=== PATIENT | male | born 1955 | race Two or more races ===

== ENCOUNTER 2025-09-18 08:41 | Inpatient (IN) | payer BC, OTHER ==
[2025-09-18] VITALS (7 sets, daily range): BP systolic 117–137; BP diastolic 59–85; PULSE 60–86; RESP 16–18; TEMP 98.1–98.2; O2SAT 95–96
[~2025-09-18] VITALS: Ht 165.1 cm; Wt 64.8 kg
[~2025-09-18 08:41] MED LIST: FAMO40TA7 PO; LISI20TA56 PO; ROSU20TA56 PO
--- NOTE | 2025-09-18 08:57 | ED.PDOC ---
History of Present Illness HPI Comments 70 year old male with PMHx HTN, HLD, DM presents to the ED with a chief compliant of dizziness onset 1 year. Patient states he has been experiencing intermittent dizziness for the past year, has worsened the past 3 months. Patient states dizziness worsens with looking up, tilting head, turning head side to side, standing. Denies head injury, chest pain, shortness of breath, difficulty walking, nausea, vomiting, diarrhea, fever, chills, recent travel, numbness/tingling. No other symptoms or modifying factors present at this time. Chief Complaint: Dizziness Time Seen by MD: 08:50 Reviewed Notes: Medications, Allergies Allergies: Coded Allergies: NO KNOWN ALLERGIES (Unverified , 09/18/25) Information Source: Patient Mode of Arrival: Ambulatory Severity: Moderate Timing: Months Duration: Intermittent Prehospital treatment: None Past Medical History PAST MEDICAL HISTORY: DM, High Lipids, HTN Surgical History: Denies all surgeries Family History Family History: Reviewed,noncontributory to illness, No family hx of Cancer, No family hx of DM, No family hx of Heart norma, No family hx of HTN, No family hx ofKidney norma, No family hx of Liver norma, No family hx of Lung norma, No family hx of Stroke Social History Smoker: Non-Smoker Alcohol: Denies ETOH Use Drugs: Denies Drug Use Lives In: Home Constitutional: denies: chills, diaphoresis, fatigue, fever, malaise, sweats, weakness, others EENTM: denies: blurred vision, double vision, ear bleeding, ear discharge, ear drainage, ear pain, ear ringing, eye pain, eye redness, hearing loss, mouth pain, mouth swelling, nasal discharge, nose bleeding, nose congestion, nose pain, photophobia, tearing, throat pain, throat swelling, voice changes, others Respiratory: denies: cough, hemoptysis, orthopnea, SOB at rest, shortness of breath, SOB with excertion, stridor, wheezing, others Cardiovascular: denies: chest pain, dizzy spells, diaphoresis, Dyspnea on exertion, edema, irregular heart beat, left arm pain, lightheadedness, palpitations, PND, syncope, others Gastrointestinal: denies: abdomen distended, abdominal pain, blood streaked bowels, constipated, diarrhea, dysphagia, difficulty swallowing, hematemesis, melena, nausea, poor appetite, poor fluid intake, rectal bleeding, rectal pain, vomiting, others Genitourinary: denies: burning, dysuria, flank pain, frequency, hematuria, incontinence, penile discharge, penile sore, pain, testicle pain, testicle swelling, urgency, others Neurological: reports: dizziness; denies: fainting, headache, left sided numbness, left sided weakness, numbness, paresthesia, pre-existing deficit, right sided numbness, right sided weakness, seizure, speech problems, tingling, tremors, weakness, others Musculoskeletal: denies: back pain, gout, joint pain, joint swelling, muscle pain, muscle stiffness, neck pain, others Integumetry: denies: bruises, change in color, change in hair/nails, dryness, laceration, lesions, lumps, rash, wounds, others Allergic/Immunocompromised: denies: Difficulty Healing, Frequent Infections, Hives, Itching, others Hematologic/Lymphatic: denies: anemia, blood clots, easy bleeding, easy bruising, swollen glands, others Endocrine: denies: excessive hunger, excessive sweating, excessive thirst, excessive urination, flushing, intolerance to cold, intolerance to heat, unexplained weight gain, unexplained weight loss, others Psychiatric: denies: anxiety, bipolar disorder, depression, hopeless, panic disorder, schizophrenia, sleepless, suicidal, others All Other Systems: Reviewed and Negative Physical Exam General Appearance: Moderate Distress HEENT: Normal ENT Inspection, Pharynx Normal, TMs Normal Neck: Full Range of Motion, Non-Tender, Normal, Normal Inspection Respiratory: Chest Non-Tender, Lungs Clear, No Accessory Muscle Use, No Respiratory Distress, Normal Breath Sounds Cardiovascular: No Edema, No JVD, No Murmur, No Gallop, Normal Peripheral Pulses, Regular Rate/Rhythm Breast Exam: Deferred Gastrointestinal: No Organomegaly, Non Tender, No Pulsatile Mass, Normal Bowel Sounds, Soft Genitalia: Deferred Pelvic: Deferred Rectal: Deferred Extremities: No calf tenderness, Normal capillary refill, Normal inspection, Normal range of motion, Non-tender, No pedal edema Musculoskeletal : Apperance: Normal Neurologic: Alert, manager administrative services II-XII nml as Tested, Motor Weakness, Normal Affect, Normal Mood, No Sensory Deficits Cerebellar Function: Normal Reflexes: Normal Skin: Dry, Normal Color, Warm Lymphatic: No Adenopathy Was a procedure done? Was a procedure done?: No EKG EKG : Pulse Rate (adult): 62 [place]: Normal Cardiac Rhythm: NSR Block: None Differential Dx Considerations may include: Autonomic dysfunction, electrolyte imbalance, UTI, CVA X-Ray, Labs, Meds, VS Vital Signs Date Time Temp Pulse Resp B/P (MAP) Pulse Ox O2 Delivery O2 Flow Rate FiO2 09/18/25 08:45 96.3 64 17 144/65 98 96.3 The patient is having a CAT scan of the head as well as lab work done. The patient will be admitted The patient will be signed out to Dr. Gamez. Images Reviewed?: Images reviewed and evaluated by me Time of 1ST Reevaluation: 09:20 Reevaluation 1ST: Unchanged Patient Education/Counseling: Diagnosis, Treatment, Prognosis Family Education/Counseling: No Family Present SEPSIS Sepsis Screen Date sepsis recognized/suspect: Sep 18, 2025 Time Sepsis recognized/suspect: 844 Recent Procedure: No On Antibiotic Therapy: No Respiratory Rate >20: No Heart Rate >90: No Temp<36 C (96.8 F) or >38.3 C: No SBP <90 or MAP <65 mmHG: No New Acute Mental Status Change: No Is the patient on CPAP, BIPAP,: No Physician Orders Complete Blood Count (09/18/25 08:55) Urinalysis (09/18/25 08:55) Basic Metabolic Panel (09/18/25 08:55) Heplock Iv (09/18/25 08:55) Refrigerator Repair Technician (09/18/25 08:55) Blood Pressure (09/18/25 08:55) Pulse Oximetry (09/18/25 08:55) Head Without Contrast (09/18/25 08:55) Vital Signs Date Time Temp Pulse Resp B/P (MAP) Pulse Ox O2 Delivery O2 Flow Rate FiO2 09/18/25 08:45 96.3 64 17 144/65 98 96.3 Departure 1 Departure Time of Disposition: 09:03 Impression: Primary Impression: Autonomic dysfunction Disposition: ADMITTED INPATIENT Admit to: [facility] Condition: Fair Critical Care Note Critical Care Time?: No Stability Stability form required: No I personally scribed for CHAY WHITE MD ([email or web address]) on 11/24/25 at 08:57. Electronically submitted by Sherlyn Del Castillo ([email or web address]). CHAY WHITE MD Sep 18, 2025 08:57
--- NOTE | 2025-09-18 09:01 | ECG ---
[facility] Test Date: 2025-09-18 Test Time: 08:57:49 Pat Name: ANGEL MITCHELL Department: ED Room: 0235 Gender: M Machinist: MASSIMO : [id number] Requested By: CHAY WHITE Order Number: [id number] Reading MD: Vadim Burns Measurements Intervals [place]yer Rate: 62 P: 25 OK: 103 QRS: 41 QRSD: 85 T: 41 QT: 423 QTc: 430 Interpretive Statements Sinus rhythm Short OK interval Electronically Signed On 09-20-2025 17:45:34 PST by Vadim Burns Please click the below link to view image of tracing.
[2025-09-18 09:17] LABS: Hematocrit 40.1 % (41.0-53.0); Hemoglobin 13.6 g/dL (13.5-17.5); Mean Corpuscular Hemoglobin 29.4 pg (28.0-32.0); Mean Corpuscular Volume 86.7 fL (80.0-100.0); Nucleated Red Blood Cells % 0.0 %
[2025-09-18 09:25] LABS: Chloride 102 mmol/L (98-107); Potassium 4.6 mmol/L (3.5-5.1); Sodium 143 mmol/L (136-145)
[2025-09-18 09:26] LABS: Anion Gap 8 (5-15); Calcium 10.0 mg/dL (8.7-10.4)
[2025-09-18 09:27] LABS: Carbon Dioxide 33 mmol/L (20-31)
[2025-09-18 09:31] LABS: BUN/Creatinine Ratio 14.7 (10.0-20.0); Blood Urea Nitrogen 14 mg/dL (9-23)
[2025-09-18 09:40] LABS: Glucose 131 mg/dL (74-106)
--- NOTE | 2025-09-18 10:23 | DVH ---
CLINICAL HISTORY: Dizziness TECHNIQUE: Helical scanning was performed of the head from the skull base to the vertex. Multiplanar reconstructions were performed. This exam was performed according to our departmental dose optimization program. Up-to-date CT equipment and radiation dose reduction techniques are utilized as appropriate. CTDI 54 DLP 966 COMPARISON: None FINDINGS: There is no evidence for acute intracranial hemorrhage, acute ischemic changes, mass, mass effect, or extra-axial fluid collection. There is no hydrocephalus or midline shift. There is no effacement of the cerebral sulci and basal subarachnoid cisterns. The penn-white matter differentiation is well maintained. There is mild brain volume loss and chronic small vessel ischemic change. The imaged paranasal sinuses are clear. IMPRESSION: NO ACUTE INTRACRANIAL ABNORMALITY SEEN.
[2025-09-18] MEDS ORDERED: HYDROcodone-ACET 7.5/325MG TAB PO PRN (10:45)
[2025-09-18] MEDS ORDERED: DEXTROSE (50%) 50ML SYRG IV PRN (10:45)
[2025-09-18] MEDS: FAMOTIDINE 20 MG TAB PO ONE (10:59)
[2025-09-18] MEDS: LISINOPRIL 20 MG TAB PO ONE (11:00)
[2025-09-18] MEDS: ENOXAPARIN SOD 40 MG/0.4 ML SYRINGE SC ONE (11:00)
--- NOTE | 2025-09-18 11:07 | DVHHPRES ---
History of Present Illness Resident Creating Document: KENYA ELIZONDO RESDIENT History of Present Illness This is a 70-year-old gentleman with past medical history of diabetes, hypertension, dyslipidemia, spinal herniated disc and hemorrhoids came to the hospital due to dizziness and syncope like episodes. Per patient, he had a mechanical fall 2 years back, and since that time he has neck and lower back pain which has progressively worsened. He also reports of dizziness, which gets worsened with changing position. He also reports of blurry vision, ringing ears, decreased hearing, constipation, severe rectal pain during passing stool, PMHx: diabetes, hypertension, dyslipidemia, spinal herniated disc and hemorrhoids PSHx: Underwent hemorrhoid surgery six-month marianela Family history: Father had heart attack Social history: Denies smoking, alcohol or any other drug use. Lives with the family at home Home medication: Lisinopril 20 mg daily, famotidine 40 mg daily, docusate, rosuvastatin 20 mg daily, glipizide 10 mg daily, metformin 1 g b.i.d., meloxicam, Allergic history: No known allergy Patient seen and examined at the bedside. Patient is still complaining of dizziness and severe lower back and neck pain. Review of Systems Review of Systems General: patient denies fever, fatigue, weaknes, sweating, reports 80 lb intentional weight loss within last year HEENT: Reports neck pain, blurry vision, ringing and decreased hearing Cardiovascular: Denies chest pain, palpitations, dyspnea on exertion, orthopnea, or claudication. Respiratory: No cough, and wheezing. Gastrointestinal: Reports constipation, pain during bowel movement Genitourinary: No dysuria, hematuria, discharge, frequency, urgency, nocturia, incontinence, and urinary retention. Endocrine: No heat or cold intolerance, polydipsia, polyuria, and polyphagia. Neurological: No dizziness, extremity weakness and numbness, tremors, gait disturbance, seizures, and memory impairment. Psychiatric: Denies depression, anxiety,or insomnia. Musculoskeletal: Reports severe lower back and neck pain Skin: No rashes, itching, skin lesion, changes in hair, nail, skin texture and breast. Hematologic/Lymphatic: Denies easy bruising, bleeding tendencies, or lymph node enlargement. Allergies: Coded Allergies: NO KNOWN ALLERGIES (Unverified , 09/18/25) Medications Current Medications Medications Dose Ordered Sig/Binta Route Start Time Stop Time Status Last Admin Dose Admin Acetaminophen 650 mg Q6HP PRN PO 09/18/25 10:45 Enoxaparin Sodium 40 mg DAILY SC 09/19/25 10:00 Acetaminophen/ Hydrocodone Bitart 1 tab Q6HP PRN PO 09/18/25 10:45 Diagnostic Test (Pha) 1 strip ACHS 09/18/25 11:30 Insulin Human Regular ACHS SC 09/18/25 11:30 Dextrose 50 ml UD PRN IV 09/18/25 10:45 Lisinopril 20 mg DAILY PO 09/19/25 10:00 Atorvastatin Calcium 40 mg HS PO 09/18/25 22:00 Famotidine 40 mg DAILY PO 09/19/25 10:00 Exam Vital Signs Vital Signs Date Time Temp Pulse Resp B/P (MAP) Pulse Ox O2 Delivery O2 Flow Rate FiO2 09/18/25 11:00 137/63 09/18/25 10:16 61 58 66 09/18/25 10:14 97.8 15 98 97.8 09/18/25 09:50 Room Air* 0 21 Exam General Appearance: Alert, Oriented X3, Cooperative, No acute distress HEENT: Atraumatic, PERRLA, EOMI, Mucous membrane moist/pink Respiratory: Clear to auscultation, Normal air movement Cardiovascular: Regular rate, Normal S1, Normal S2, No murmurs, no chest wall tenderness Abdominal: Normal bowel sounds, Soft, No tenderness, No hepatospenomegaly, No masses Extremities: No clubbing, No cyanosis, No edema, Normal pulses, No tenderness/swelling Skin: No rashes, No breakdown, No significant lesion Neuro: Neck and lower back tenderness, on midline Psych/Mental Status: Mental status NL, Mood NL Digital rectal exam performed, found to skin tags, but due to high sphincters from, could not advance the finger Labs/Xrays Labs Test 09/18/25 09:02 Range/Units White Blood Count 7.7 4.4-10.8 10^3/uL Red Blood Count 4.63 4.5-5.90 10^6/uL Hemoglobin 13.6 13.5-17.5 g/dL Hematocrit 40.1 L 41.0-53.0 % Mean Corpuscular Volume 86.7 80.0-100.0 fL Mean Corpuscular Hemoglobin 29.4 28.0-32.0 pg Mean Corpuscular Hemoglobin Concent 34.0 32.0-36.0 g/dL Red Cell Distribution Width 12.9 11.8-14.3 % Platelet Count 140 140-450 10^3/uL Mean Platelet Volume 10.3 6.9-10.8 fL Neutrophils (%) (Auto) 60.0 37.0-80.0 % Lymphocytes (%) (Auto) 31.4 10.0-50.0 % Monocytes (%) (Auto) 6.7 0.0-12.0 % Eosinophils (%) (Auto) 1.2 0.0-7.0 % Basophils (%) (Auto) 0.7 0.0-2.0 % Neutrophils # (Auto) 4.6 1.6-8.6 10 ^3/uL Lymphocytes # (Auto) 2.4 0.4-5.4 10 ^3/uL Monocytes # (Auto) 0.5 0-1.3 10 ^3/uL Eosinophils # (Auto) 0.1 0-0.8 10 ^3/uL Basophils # (Auto) 0.1 0-0.2 10 ^3/uL Nucleated Red Blood Cells 0.0 % Sodium Level 143 136-145 mmol/L Potassium Level 4.6 3.5-5.1 mmol/L Chloride Level 102 98-107 mmol/L Carbon Dioxide Level 33 H 20-31 mmol/L Anion Gap 8 5-15 Blood Urea Nitrogen 14 9-23 mg/dL Creatinine 0.95 0.700-1.30 mg/dL Glomerular Filtration Rate Calc 87 >90 mL/min BUN/Creatinine Ratio 14.7 10.0-20.0 Serum Glucose 131 H 74-106 mg/dL Calcium Level 10.0 8.7-10.4 mg/dL SEPSIS Sepsis Screen Date sepsis recognized/suspect: Sep 18, 2025 Time Sepsis recognized/suspect: 914 Recent Procedure: No On Antibiotic Therapy: No Respiratory Rate >20: No Heart Rate >90: No Temp<36 C (96.8 F) or >38.3 C: No SBP <90 or MAP <65 mmHG: No New Acute Mental Status Change: No Is the patient on CPAP, BIPAP,: No Physician Orders Urinalysis (09/18/25 08:55) Heplock Iv (09/18/25 08:55) Polymerization Supervisor (09/18/25 08:55) Blood Pressure (09/18/25 08:55) Pulse Oximetry (09/18/25 08:55) Head Without Contrast (09/18/25 08:55) Code Status (09/18/25 10:24) Vital Signs .PER UNIT PROTOCOL (09/18/25 10:24) Review Orders With Adm.Md (09/18/25 10:24) Notify Md Of Changes From Base (09/18/25 10:24) Advance Directive (09/18/25 10:24) Patient Condition (09/18/25 10:24) Allergies (09/18/25 10:24) Stat Ekg For Chest Pain (09/18/25 10:24) Notify Md Of Changes From Base (09/18/25 10:24) Joiner For 24 Hours (09/18/25 10:24) Admit (09/18/25 10:30) Echo 2d Mode Cardiac Dop (09/18/25 10:31) Carotid Duplx W Color Dop (09/18/25 10:31) Cervical Wo Contrast (09/18/25 10:31) Thyroid Stimulating Hormone (09/18/25 10:31) Vitamin D, 25-Hydroxy (09/18/25 10:31) Vitamin B12 (09/18/25 10:31) Magnesium (09/18/25 10:31) Hepatic Panel (09/18/25 10:31) Hemoglobin A1c (09/18/25 10:31) [facility]Diabetes (09/18/25 Lunch) Acetaminophen Tablet (Tylenol Tablet) (09/18/25 10:45) Enoxaparin Sodium (Lovenox) (09/19/25 10:00) Hydrocodone-Acet 7.5/325mg Tab ([place] 7. (09/18/25 10:45) Glucose Blood (Accu-Chek Comfort Curve T (09/18/25 11:30) Insulin R (Human) (Insulin R) (09/18/25 11:30) Dextrose 50% Syringe (09/18/25 10:45) Lisinopril Tablet (Zestril Tablet) (09/19/25 10:00) Atorvastatin (Lipitor) (09/18/25 22:00) Famotidine Tablet (Pepcid Tablet) (09/19/25 10:00) Lipid Panel (09/18/25 10:48) Vital Signs Date Time Temp Pulse Resp B/P (MAP) Pulse Ox O2 Delivery O2 Flow Rate FiO2 09/18/25 11:00 137/63 09/18/25 10:16 61 128/53 58 116/47 66 127/54 09/18/25 10:14 97.8 61 15 134/56 (82) 98 97.8 09/18/25 09:50 60 16 96 Room Air* 0 21 09/18/25 09:05 65 14 141/61 (87) 99 09/18/25 09:04 62 09/18/25 08:57 62 09/18/25 08:45 96.3 64 17 144/65 98 96.3 Laboratory Tests Test 09/18/25 09:02 White Blood Count 7.7 10^3/uL (4.4-10.8) Medications Medications Dose Ordered Sig/Binta Route Start Time Stop Time Status Last Admin Dose Admin Enoxaparin Sodium 40 mg ONCE ONCE SC 09/18/25 10:45 09/18/25 10:46 DC 09/18/25 11:00 40 MG Famotidine 40 mg ONCE ONCE PO 09/18/25 10:45 09/18/25 10:51 DC 09/18/25 10:59 40 MG Lisinopril 20 mg ONCE ONCE PO 09/18/25 10:45 09/18/25 10:51 DC 09/18/25 11:00 20 MG Assessment/Plan Assessment/Plan Vertigo, likely due to severe cervical spine stenosis/BPPV Presyncope, due to above Severe cervical spine stenosis BPPV Painful defecation, likely due to anal fissure Anesthesia Severe constipation Constipation, due to above BPH Diabetes Hypertension Dyslipidemia * Orthostatic hypotension check, no significant changes * Consult Doppler, and Head CT scan shows no significant intracranial abnormalities * Cervical spine MRI shows, multilevel degenerative changes most pronounced at C5-6 where there is severe spinal canal narrowing with cord indentation and moderate to severe bilateral foraminal stenosis * Lumbar spine MRI shows, multilevel degenerative changes of the lumbar spine as described above with [id number] foraminal stenosis at multiple levels. No significant spinal canal stenosis * Pelvic ultrasound shows, moderate large prostate Plan/recommendation: * Consider surgery for severe constipation and anal fissure, recommended medical management * Consulted spine surgery for severe cervical spine stenosis * Started Flomax and finasteride * MiraLax and Colace for constipation * Continue home meds, lisinopril and atorvastatin * Pain management DIET: Diabetic diet DVT PROPHYLAXIS: Lovenox GI PROPHYLAXIS:: Protonix BOWEL REGIMEN: Colace and MiraLax CODE STATUS: Goal of care discussed for more than 18 minutes, full code DISPOSITION: Telemetry Patient's status and plan discussed with the patient. Case discussed with Dr. Lamb. Plan discussed with: Patient, Son, Other (RN) My Orders Orders - KENYA ELIZONDO RESDIJHONATHAN Procedure Category Date Status Time Code Status CODE 09/18/25 Transmitted 10:24 Vital Signs [facility] 09/18/25 In Process 10:24 Review Orders With [facility] 09/18/25 In Process Adm.Md 10:24 Notify Md Of Changes [facility] 09/18/25 In Process From Base 10:24 Advance Directive [facility] 09/18/25 In Process 10:24 Patient Condition ORDERS 09/18/25 Transmitted 10:24 Allergies GHADA 09/18/25 In Process 10:24 Stat Ekg For Chest [facility] 09/18/25 In Process Pain 10:24 Notify Md Of Changes [facility] 09/18/25 In Process From Base 10:24 Joiner For [facility] 09/18/25 In Process 24 Hours 10:24 Admit ADMIT 09/18/25 Transmitted 10:30 Echo 2d Mode Cardiac US 09/18/25 Logged DOP 10:31 Carotid Duplx W Color US 09/18/25 Taken DOP 10:31 Cervical Wo Contrast MRI 09/18/25 Logged 10:31 Thyroid Stimulating LAB 09/18/25 In Process Hormone 10:31 Vitamin D, 25-Hydroxy LAB 09/18/25 Logged 10:31 Vitamin B12 LAB 09/18/25 Logged 10:31 Magnesium LAB 09/18/25 In Process 10:31 Hepatic Panel LAB 09/18/25 Logged 10:31 Hemoglobin A1c LAB 09/18/25 In Process 10:31 Consistent DIET 09/18/25 Transmitted Carb(Ccho)Diabetes Lunch Acetaminophen Tablet PHA 09/18/25 In Process (Tylenol Tablet) 10:45 Enoxaparin Sodium PHA 09/19/25 In Process (Lovenox) 10:00 Hydrocodone-Acet PHA 09/18/25 In Process 7.5/325mg Tab ([place] 10:45 Glucose Blood PHA 09/18/25 In Process (Accu-Chek Comfort 11:30 Insulin R (Human) PHA 09/18/25 In Process (Insulin R) 11:30 Dextrose 50% Syringe PHA 09/18/25 In Process 10:45 Lisinopril Tablet PHA 09/19/25 In Process (Zestril Tablet) 10:00 Atorvastatin (Lipitor) PHA 09/18/25 In Process 22:00 Famotidine Tablet PHA 09/19/25 In Process (Pepcid Tablet) 10:00 Lipid Panel LAB 09/18/25 Logged 10:48 Date of Service: Sep 18, 2025 Billing Provider: MICHELLE LAMB MD Common Visit Codes: 39604-[id number] INP/OBS CARE (HIGH) Secondary Visit Codes: 45104-[id number] CARE PLAN 30 MINUTES KENYA ELIZONDO RESDIENT Sep 18, 2025 11:07 MICHELLE LAMB MD Sep 18, 2025 21:08
--- NOTE | 2025-09-18 11:25 | DVH ---
Carotid Duplex Date: 09/18/2025 10:55 AM Clinical History: Pre-syncope Comparison: None Technique: Duplex Doppler evaluation of the extracranial carotid and vertebral arteries including color Doppler and spectral/pulsed waveform analysis was performed. Findings: RIGHT SIDE: The peak systolic velocities are 92 cm/s in the distal CCA and 177 cm/s in the proximal ICA.The ICA/CCA ratio is less than 2. The external carotid artery is patent with peak systolic velocity of 117 cm/s proximally. There is appropriate antegrade flow in the right vertebral artery. LEFT SIDE: The peak systolic velocities are 85 cm/s in the distal CCA and 0 9 cm/s in the proximal ICA.. The ICA/CCA ratio is less than 2. The external carotid artery is patent with peak systolic velocity of 126 cm/s proximally. There is appropriate antegrade flow in the left vertebral artery. IMPRESSION: 1. No hemodynamically significant stenosis noted in the right carotid system. 2. No hemodynamically significant stenosis noted in the left carotid system. 3. Reference: Radiology 2003; 229:340-346
[2025-09-18] MEDS: InsuLIN REG 1unit/0.01ml Soln (100units/ml) SC SCH (11:30)
[2025-09-18 11:38] LABS: Cholesterol 139 mg/dL (< 200); HDL Cholesterol 47 mg/dL (40-59); Triglycerides 183 mg/dL (< 150)
[2025-09-18 11:39] LABS: Alanine Aminotransferase 11.0 U/L (7-40); Albumin 4.5 g/dL (3.2-4.8); Alkaline Phosphatase 60.0 U/L (46-116); Bilirubin, Direct 0.1 mg/dL (<0.3); Bilirubin, Total 0.5 mg/dL (0.2-1.0); Total Protein 7.0 g/dL (5.7-8.2)
[2025-09-18 11:45] LABS: Urine Protein, UAD Negative (Negative)
[2025-09-18] MEDS: ACCU-CHEK COMFORT CURVE STRIP VI SCH (11:58)
[2025-09-18] MEDS: MORPHINE SULFATE INJ 2 MG/ml SYRG IV PRN (14:02)
--- NOTE | 2025-09-18 14:11 | DVH ---
US PELVIC on CLINICAL INDICATION: Prostate size COMPARISON: None TECHNIQUE: Multiple sonographic images of the prostate gland were obtained transrectally. FINDINGS: Prostate measures 5 x 5 x 6 cm. Volume measures 63 cc. Prostate appears heterogeneous with echogenic avascular foci measuring up to 2 cm. IMPRESSION: Prostate measures 5 x 5 x 6 cm. Volume measures 63 cc. Prostate appears heterogeneous with echogenic avascular foci measuring up to 2 cm. Correlate with PSA.
[2025-09-18] MEDS: LIDOCAINE HCL 5 % TOP OINT 35 GM TOP ONE (14:19)
[2025-09-18] MEDS: HYDROCORTISONE ACET 25 MG RECTAL SUPP PR ONE (14:38)
--- NOTE | 2025-09-18 16:04 | DVH ---
EXAM: MRI CERVICAL WO CONTRAST CLINICAL HISTORY: Neck pain, fall injury COMPARISON: None Technique: MRI of the cervical spine was performed without contrast. Findings: Vertebral body height is preserved. Vertebral body alignment is within normal limits. Vertebral marrow signal is essentially normal. No spinal cord edema. C2-3: Disc bulge with uncovertebral hypertrophy. No significant spinal canal or foraminal stenosis. C3-4: Disc bulge with uncovertebral hypertrophy. No significant spinal canal or foraminal stenosis. C4-5: Disc bulge with uncovertebral hypertrophy. Mild bilateral foraminal stenosis and moderate spinal canal narrowing. C5-6: Disc bulge with uncovertebral hypertrophy. Moderate to severe bilateral foraminal stenosis. Severe spinal canal narrowing with cord indentation. C6-7: Disc bulge with uncovertebral hypertrophy. Moderate to severe bilateral foraminal stenosis. Mild spinal canal narrowing. C7-T1: No significant spinal canal or foraminal stenosis. The paraspinal tissues are unremarkable. IMPRESSION: Multilevel degenerative changes most pronounced at C5-6 where there is severe spinal canal narrowing with cord indentation and moderate to severe bilateral foraminal stenosis. No cord edema. No acute fracture.
--- NOTE | 2025-09-18 16:27 | DVH ---
EXAM: MRI LUMBAR SPINE WO CONTRAST CLINICAL HISTORY: Back pain COMPARISON: None Technique: MRI of the lumbar spine was performed without contrast. Findings: Vertebral body height is maintained. Vertebral alignment is anatomic. Vertebral marrow signal intensity is unremarkable. The conus medullaris is normal in position and signal intensity. L1-L2: No significant spinal canal or foraminal stenosis. L2-L3: No significant spinal canal or foraminal stenosis. L3-L4: Disc bulge with facet arthropathy and ligamentum flavum thickening. No significant spinal canal or foraminal stenosis. L4-L5: Disc bulge with facet arthropathy. Mild right foraminal stenosis. No significant spinal canal narrowing. L5-S1: Disc bulge and facet arthropathy. Moderate right and mild left foraminal stenosis. No significant spinal canal narrowing. No mass is identified within the lumbar spinal canal or paravertebral soft tissues. IMPRESSION: Multilevel degenerative changes of the lumbar spine as described above with [id number] foraminal stenosis at multiple levels. No significant spinal canal stenosis.
[2025-09-18] MEDS: FINASTERIDE 5 MG TAB PO ONE (17:48)
[2025-09-18] MEDS: MECLIZINE HCL 25 MG TAB PO ONE (17:51)
--- NOTE | 2025-09-18 18:15 | DVHINCON2 ---
Consultation - Surgical Date Seen: Sep 19, 2025 Referring Physician Referring Physician Attending Doctor: Aurea Khalil Resident Creating Document: AUREA KHALIL Reason for Consultation Severe neck and low back pain History of Present Illness History of Present Illness History of Present Illness This is a 70-year-old gentleman with past medical history of diabetes, hypertension, dyslipidemia, spinal herniated disc and hemorrhoids came to the hospital due to dizziness since six-month. Per patient, he had a mechanical fall 2 years back, and since that time he has neck and lower back pain which has progressively worsened. He also reports of dizziness, which gets worsened with changing position, and looking around. He also reports of blurry vision, ringing ears, decreased hearing, constipation, rectal pain during passing stool, Past Medical/Surgical History Past Medical/Surgical History PMHx: diabetes, hypertension, dyslipidemia, spinal herniated disc and hemorrhoids PSHx: Underwent hemorrhoid surgery six-month marianela Family and Social History Family and Social History Family history: Father had heart attack Social history: Denies smoking, alcohol or any other drug use. Lives with the family at home Home medication: Lisinopril 20 mg daily, famotidine 40 mg daily, docusate, rosuvastatin 20 mg daily, glipizide 10 mg daily, metformin 1 g b.i.d., meloxicam, Allergic history: No known allergy Allergies and medications Allergies: Coded Allergies: NO KNOWN ALLERGIES (Unverified , 09/18/25) Home Meds Active Scripts Baclofen (Baclofen) 20 Mg Tab, 10 TAB PO TID, #90 TAB Prov:AUREA KHALIL RESDIENT 09/20/25 Polyethylene Glycol 3350 (Miralax) 17 Gm Pow, 17 GM PO DAILY PRN for 30 Days, #60 POW Prov:MIKHAILRUSSELLDANYA RESDIENT 09/20/25 Docusate Sodium (Colace) 100 Mg Cap, 100 MG PO TID for 30 Days, #60 CAP Prov:MIKHAILRUSSELLDANYA RESDIENT 09/20/25 Lidocaine (LIDODERM 5% TOPICAL PATCH) 1 Patch Ph, 1 PATCH TOP PRN for 30 Days, #60 PATCH Prov:AUREA KHALIL RESDIENT 09/20/25 Finasteride (Finasteride) 5 Mg Tab, 5 MG PO DAILY for 30 Days, #30 TAB 2 Refills Prov:AUREA KHALIL RESDIENT 09/20/25 Tamsulosin Hcl (Flomax) 0.4 Mg Cap, 0.4 MG PO DAILY for 30 Days, #60 CAP Prov:AUREA KHALIL RESDIENT 09/20/25 Empagliflozin (Jardiance) 10 Mg Tab, 10 MG PO BID for 30 Days, #60 TAB Prov:AUREA KHALIL RESDIENT 09/20/25 Reported Medications Metformin Hydrochloride (Metformin Hcl) 850 Mg Tab, 1000 MG PO BID for 30 Days, MG 09/18/25 Insulin Glargine (Basaglar Kwikpen) 100 Unit/Ml Inj, 20 UNIT SC Bedtime , INJ 09/18/25 Famotidine (Famotidine) 40 Mg Tab, 1 TAB PO DAILY for 90 Days, #90 09/18/25 Rosuvastatin Calcium (Rosuvastatin Calcium) 20 Mg Tab, 1 TAB PO DAILY for 90 Days, #90 09/18/25 Lisinopril (Lisinopril) 20 Mg Tab, 1 TAB PO BID for 90 Days, #180 09/18/25 Review of systems Review of Systems: GI:Abnormal (Reports severe constipation), MSK:Abnormal ( Reports severe lower back and neck pain), NEURO:Abnormal (Patient states dizz iness worsens with looking up, tilting head, turning head side to side, standing.) Examination Vital signs imaging: ORDERING PHYSICIAN: AUREA KHALIL PROCEDURE(s): MNE - CERVICAL WO CONTRAST REASON: Neck pain, fall injury ORDER NUMBER(s): [id number], ACCESSION NUMBER(s): [id number] EXAM: MRI CERVICAL WO CONTRAST CLINICAL HISTORY: Neck pain, fall injury COMPARISON: None Technique: MRI of the cervical spine was performed without contrast. Findings: Vertebral body height is preserved. Vertebral body alignment is within normal limits. Vertebral marrow signal is essentially normal. No spinal cord edema. C2-3: Disc bulge with uncovertebral hypertrophy. No significant spinal canal or foraminal stenosis. C3-4: Disc bulge with uncovertebral hypertrophy. No significant spinal canal or foraminal stenosis. C4-5: Disc bulge with uncovertebral hypertrophy. Mild bilateral foraminal stenosis and moderate spinal canal narrowing. C5-6: Disc bulge with uncovertebral hypertrophy. Moderate to severe bilateral foraminal stenosis. Severe spinal canal narrowing with cord indentation. C6-7: Disc bulge with uncovertebral hypertrophy. Moderate to severe bilateral foraminal stenosis. Mild spinal canal narrowing. C7-T1: No significant spinal canal or foraminal stenosis. The paraspinal tissues are unremarkable. IMPRESSION: Multilevel degenerative changes most pronounced at C5-6 where there is severe spinal canal narrowing with cord indentation and moderate to severe bilateral foraminal stenosis. No cord edema. No acute fracture. RING PHYSICIAN: AUREA KHALIL PROCEDURE(s): MSL - LUMBAR SPINE WO CONTRAST REASON: Back pain ORDER NUMBER(s): [id number], ACCESSION NUMBER(s): [id number] EXAM: MRI LUMBAR SPINE WO CONTRAST CLINICAL HISTORY: Back pain COMPARISON: None Technique: MRI of the lumbar spine was performed without contrast. Findings: Vertebral body height is maintained. Vertebral alignment is anatomic. Vertebral marrow signal intensity is unremarkable. The conus medullaris is normal in position and signal intensity. L1-L2: No significant spinal canal or foraminal stenosis. L2-L3: No significant spinal canal or foraminal stenosis. L3-L4: Disc bulge with facet arthropathy and ligamentum flavum thickening. No significant spinal canal or foraminal stenosis. L4-L5: Disc bulge with facet arthropathy. Mild right foraminal stenosis. No significant spinal canal narrowing. L5-S1: Disc bulge and facet arthropathy. Moderate right and mild left foraminal stenosis. No significant spinal canal narrowing. No mass is identified within the lumbar spinal canal or paravertebral soft tissues. IMPRESSION: Multilevel degenerative changes of the lumbar spine as described above with [id number] foraminal stenosis at multiple levels. No significant spinal canal stenosis. P Vital Signs Date Time Temp Pulse Resp B/P (MAP) Pulse Ox O2 Delivery O2 Flow Rate FiO2 09/18/25 17:16 18 Room Air* 0 21 09/18/25 16:51 137/75 (95) 96 09/18/25 16:49 98.2 72 98.2 Medications Current Medications Medications (Trade) Dose Ordered Sig/Binta Route PRN Reason Start Time Stop Time Status Last Admin Acetaminophen (Tylenol Tablet) 650 mg Q6HP PRN PO MILD PAIN (1-3 PAIN SCALE) 09/18/25 10:45 Enoxaparin Sodium (Lovenox) 40 mg DAILY SC 09/19/25 10:00 Acetaminophen/ Hydrocodone Bitart ([place] 7.5/325MG Tab) 1 tab Q6HP PRN PO MODERATE PAIN (4-6 PAIN SCALE) 09/18/25 10:45 Diagnostic Test (Pha) (Accu-Chek Comfort Curve T) 1 strip ACHS 09/18/25 11:30 09/18/25 17:48 Insulin Human Regular (InsuLIN R) ACHS SC 09/18/25 11:30 09/18/25 17:53 Dextrose 50 ml UD PRN IV Blood Sugar LESS THAN 60 09/18/25 10:45 Lisinopril (Zestril Tablet) 20 mg DAILY PO 09/19/25 10:00 Atorvastatin Calcium (Lipitor) 40 mg HS PO 09/18/25 22:00 Famotidine (Pepcid Tablet) 40 mg DAILY PO 09/19/25 10:00 Morphine Sulfate 2 mg Q4HPRN PRN IV SEVERE PAIN (7-10 PAIN SCALE) 09/18/25 13:30 09/18/25 14:02 Finasteride (Proscar Tablet) 5 mg DAILY PO 09/19/25 10:00 Meclizine HCl (Antivert Tablet) 25 mg [id number] PRN PO DIZZINESS 09/19/25 06:00 Polyethylene Glycol (Miralax 17GM Powder) 17 gm DAILYPRN PRN PO FOR CONSTIPATION 09/18/25 17:15 Laboratory Labs Test 09/18/25 17:46 09/18/25 13:11 09/18/25 12:04 09/18/25 11:31 Range/Units POC Glucose 218 H 70-106 mg/dl Stool Occult Blood Negative Negative Stool Occult Blood Sample #3 Negative Vitamin B12 Level 1643 H 211-911 pg/mL Vitamin D 25-Hydroxy 86.9 30.0-100 ng/mL Urine Color Light-yellow Yellow Urine Clarity Clear Clear Urine pH 7.0 5.0-9.0 Urine Specific [place] 1.013 1.001-1.035 Urine Protein Negative Negative Urine Ketones Negative Negative Urine Blood Negative Negative /uL Urine Nitrite Negative Negative Urine Bilirubin Negative Negative Urine Urobilinogen Normal Negative mg/dL Urine Leukocyte Esterase Negative Negative /uL Urine RBC <1 0 - 3 /hpf Urine Microscopic WBC < 1 0-3 /HPF Urine Squamous Epithelial Cells None seen <5 /hpf Urine Bacteria None seen None Seen /hpf Urine Glucose Normal Normal mg/dL Test 09/18/25 09:02 Range/Units White Blood Count 7.7 4.4-10.8 10^3/uL Red Blood Count 4.63 4.5-5.90 10^6/uL Hemoglobin 13.6 13.5-17.5 g/dL Hematocrit 40.1 L 41.0-53.0 % Mean Corpuscular Volume 86.7 80.0-100.0 fL Mean Corpuscular Hemoglobin 29.4 28.0-32.0 pg Mean Corpuscular Hemoglobin Concent 34.0 32.0-36.0 g/dL Red Cell Distribution Width 12.9 11.8-14.3 % Platelet Count 140 140-450 10^3/uL Mean Platelet Volume 10.3 6.9-10.8 fL Neutrophils (%) (Auto) 60.0 37.0-80.0 % Lymphocytes (%) (Auto) 31.4 10.0-50.0 % Monocytes (%) (Auto) 6.7 0.0-12.0 % Eosinophils (%) (Auto) 1.2 0.0-7.0 % Basophils (%) (Auto) 0.7 0.0-2.0 % Neutrophils # (Auto) 4.6 1.6-8.6 10 ^3/uL Lymphocytes # (Auto) 2.4 0.4-5.4 10 ^3/uL Monocytes # (Auto) 0.5 0-1.3 10 ^3/uL Eosinophils # (Auto) 0.1 0-0.8 10 ^3/uL Basophils # (Auto) 0.1 0-0.2 10 ^3/uL Nucleated Red Blood Cells 0.0 % Sodium Level 143 136-145 mmol/L Potassium Level 4.6 3.5-5.1 mmol/L Chloride Level 102 98-107 mmol/L Carbon Dioxide Level 33 H 20-31 mmol/L Anion Gap 8 5-15 Blood Urea Nitrogen 14 9-23 mg/dL Creatinine 0.95 0.700-1.30 mg/dL Glomerular Filtration Rate Calc 87 >90 mL/min BUN/Creatinine Ratio 14.7 10.0-20.0 Serum Glucose 131 H 74-106 mg/dL Hemoglobin A1c 7.0 H <5.7 % A1C Calcium Level 10.0 8.7-10.4 mg/dL Magnesium Level 1.9 1.6-2.6 mg/dL Total Bilirubin 0.5 0.2-1.0 mg/dL Direct Bilirubin 0.1 <0.3 mg/dL Aspartate Amino Transferase (AST) 13 13-40 U/L Alanine Aminotransferase (ALT) 11 7-40 U/L Alkaline Phosphatase 60 46-116 U/L Total Protein 7.0 5.7-8.2 g/dL Albumin 4.5 3.2-4.8 g/dL Triglycerides Level 183 H < 150 mg/dL Cholesterol Level 139 < 200 mg/dL LDL Cholesterol 64 < 100 mg/dL HDL Cholesterol 47 40-59 mg/dL Thyroid Stimulating Hormone (TSH) 1.55 0.55-4.78 uIU/mL Examination: NEURO:Abnormal (Patient states dizziness worsens with looking up, tilting head, turning head side to side, standing.) Problem List/Assessment/Plan Problems: (1) Cervical stenosis of spinal canal (2) Muscle spasms of neck (3) Muscle spasm of back (4) Lumbar stenosis Assessment and Plan Multilevel degenerative changes most pronounced at C5-6 where there is severe spinal canal narrowing with cord indentation and moderate to severe bilateral foraminal stenosis This finding would be best resolve with an anterior cervical diskectomy and fusion If the patient is agreeable to surgery then he will need to have cardiac clearance, the spine team would like to add the patient to the Thursday schedule 09/20/25 if the OR is able to accommodate Continue care and support per admitting team's discretion Physical therapy evaluation, treatment recommendations and safe discharge planning recommendations Effective pain management including muscle relaxers if the patient is complaining of muscle spasms Cardiac clearance if pt is agreeable to surgery Discussed treatment options with the patient, and family. They chose physical therapy and outpatient followup. No barriers to discharge from spine perspective. Call with questions Haylee Roberts [facility] Orthopaedic Spine Surgery nurse practitioner For Dr Manuel Lr Patient was examined, chart reviewed, labs evaluated, and diagnostic studies and findings analyzed. Case was discussed with Dr. Carroll Lr who formulated the plan of care. This medical document was created using an electronic medical record system with [employer] dictation system. Although this document has been carefully reviewed, there might still be some phonetic and typographical errors. These areas are purely typographical due to imperfections of the software programs, and do not reflect any compromise in the patient's medical care. Plan discussed with Plan discussed with: Patient, Son, Other (bedside RN) Visit Coding Surgery Date of Service if different f: Sep 19, 2025 Billing Provider: MONA ROBERTS NP Surgery Visit Codes: 95681 - INP CONSULT <55 MIN MONA ROBERTS NP Sep 18, 2025 18:15
--- NOTE | 2025-09-18 18:17 | DVHINCON2 ---
Consultation - Surgical Date Seen: Sep 18, 2025 Referring Physician Reason for Consultation History of hemorrhoids History of Present Illness History of Present Illness Mr. Platt is a 70-year-old male who presented to the hospital due to rectal pain with each defecation. Patient has a long history of constipation, and at times just goes once per week to the bathroom to have a BM. BM just to be hard, number slightly better softer but he does not evacuate every day. Patient recently underwent a hemorrhoidectomy, at a [facility] [place] [facility] and since then states that the pain has been unbearable and that his rectum feels tight. Patient takes Colace daily, fiber supplements, and has improved his water intake, but still having constipation issues. Patient noticed a fissure several days ago at the 12:00 o'clock position. Patient states he has had significant weight loss during the past year because he is afraid to defecate due to the rectal pain. Denies any blood in the stool on wiping. Past Medical/Surgical History Past Medical/Surgical History PMHx: diabetes, hypertension, dyslipidemia, spinal herniated disc and hemorrh oids PSHx: Underwent hemorrhoid surgery six-month marianela Family history: Father had heart attack Social history: Denies smoking, alcohol or any other drug use. Lives with the family at home Home medication: Lisinopril 20 mg daily, famotidine 40 mg daily, docusate, rosuvastatin 20 mg daily, glipizide 10 mg daily, metformin 1 g b.i.d., meloxicam, Allergic history: No known allergy Allergies and medications Allergies: Coded Allergies: NO KNOWN ALLERGIES (Unverified , 09/18/25) Home Meds Reported Medications Famotidine (Famotidine) 40 Mg Tab, 1 TAB PO DAILY for 90 Days, #90 09/18/25 Rosuvastatin Calcium (Rosuvastatin Calcium) 20 Mg Tab, 1 TAB PO DAILY for 90 Days, #90 09/18/25 Lisinopril (Lisinopril) 20 Mg Tab, 1 TAB PO BID for 90 Days, #180 09/18/25 Review of systems Review of Systems: Deferred Examination Vital signs Vital Signs Date Time Temp Pulse Resp B/P (MAP) Pulse Ox O2 Delivery O2 Flow Rate FiO2 09/18/25 17:16 18 Room Air* 0 21 09/18/25 16:51 137/75 (95) 96 09/18/25 16:49 98.2 72 98.2 Medications Current Medications Medications (Trade) Dose Ordered Sig/Binta Route PRN Reason Start Time Stop Time Status Last Admin Acetaminophen (Tylenol Tablet) 650 mg Q6HP PRN PO MILD PAIN (1-3 PAIN SCALE) 09/18/25 10:45 Enoxaparin Sodium (Lovenox) 40 mg DAILY SC 09/19/25 10:00 Acetaminophen/ Hydrocodone Bitart ([place] 7.5/325MG Tab) 1 tab Q6HP PRN PO MODERATE PAIN (4-6 PAIN SCALE) 09/18/25 10:45 Diagnostic Test (Pha) (Accu-Chek Comfort Curve T) 1 strip ACHS 09/18/25 11:30 09/18/25 17:48 Insulin Human Regular (InsuLIN R) ACHS SC 09/18/25 11:30 09/18/25 17:53 Dextrose 50 ml UD PRN IV Blood Sugar LESS THAN 60 09/18/25 10:45 Lisinopril (Zestril Tablet) 20 mg DAILY PO 09/19/25 10:00 Atorvastatin Calcium (Lipitor) 40 mg HS PO 09/18/25 22:00 Famotidine (Pepcid Tablet) 40 mg DAILY PO 09/19/25 10:00 Morphine Sulfate 2 mg Q4HPRN PRN IV SEVERE PAIN (7-10 PAIN SCALE) 09/18/25 13:30 09/18/25 14:02 Finasteride (Proscar Tablet) 5 mg DAILY PO 09/19/25 10:00 Meclizine HCl (Antivert Tablet) 25 mg [id number] PRN PO DIZZINESS 09/19/25 06:00 Polyethylene Glycol (Miralax 17GM Powder) 17 gm DAILYPRN PRN PO FOR CONSTIPATION 09/18/25 17:15 Laboratory Labs Test 09/18/25 17:46 09/18/25 13:11 09/18/25 12:04 09/18/25 11:31 Range/Units POC Glucose 218 H 70-106 mg/dl Stool Occult Blood Negative Negative Stool Occult Blood Sample #3 Negative Vitamin B12 Level 1643 H 211-911 pg/mL Vitamin D 25-Hydroxy 86.9 30.0-100 ng/mL Urine Color Light-yellow Yellow Urine Clarity Clear Clear Urine pH 7.0 5.0-9.0 Urine Specific [place] 1.013 1.001-1.035 Urine Protein Negative Negative Urine Ketones Negative Negative Urine Blood Negative Negative /uL Urine Nitrite Negative Negative Urine Bilirubin Negative Negative Urine Urobilinogen Normal Negative mg/dL Urine Leukocyte Esterase Negative Negative /uL Urine RBC <1 0 - 3 /hpf Urine Microscopic WBC < 1 0-3 /HPF Urine Squamous Epithelial Cells None seen <5 /hpf Urine Bacteria None seen None Seen /hpf Urine Glucose Normal Normal mg/dL Test 09/18/25 09:02 Range/Units White Blood Count 7.7 4.4-10.8 10^3/uL Red Blood Count 4.63 4.5-5.90 10^6/uL Hemoglobin 13.6 13.5-17.5 g/dL Hematocrit 40.1 L 41.0-53.0 % Mean Corpuscular Volume 86.7 80.0-100.0 fL Mean Corpuscular Hemoglobin 29.4 28.0-32.0 pg Mean Corpuscular Hemoglobin Concent 34.0 32.0-36.0 g/dL Red Cell Distribution Width 12.9 11.8-14.3 % Platelet Count 140 140-450 10^3/uL Mean Platelet Volume 10.3 6.9-10.8 fL Neutrophils (%) (Auto) 60.0 37.0-80.0 % Lymphocytes (%) (Auto) 31.4 10.0-50.0 % Monocytes (%) (Auto) 6.7 0.0-12.0 % Eosinophils (%) (Auto) 1.2 0.0-7.0 % Basophils (%) (Auto) 0.7 0.0-2.0 % Neutrophils # (Auto) 4.6 1.6-8.6 10 ^3/uL Lymphocytes # (Auto) 2.4 0.4-5.4 10 ^3/uL Monocytes # (Auto) 0.5 0-1.3 10 ^3/uL Eosinophils # (Auto) 0.1 0-0.8 10 ^3/uL Basophils # (Auto) 0.1 0-0.2 10 ^3/uL Nucleated Red Blood Cells 0.0 % Sodium Level 143 136-145 mmol/L Potassium Level 4.6 3.5-5.1 mmol/L Chloride Level 102 98-107 mmol/L Carbon Dioxide Level 33 H 20-31 mmol/L Anion Gap 8 5-15 Blood Urea Nitrogen 14 9-23 mg/dL Creatinine 0.95 0.700-1.30 mg/dL Glomerular Filtration Rate Calc 87 >90 mL/min BUN/Creatinine Ratio 14.7 10.0-20.0 Serum Glucose 131 H 74-106 mg/dL Hemoglobin A1c 7.0 H <5.7 % A1C Calcium Level 10.0 8.7-10.4 mg/dL Magnesium Level 1.9 1.6-2.6 mg/dL Total Bilirubin 0.5 0.2-1.0 mg/dL Direct Bilirubin 0.1 <0.3 mg/dL Aspartate Amino Transferase (AST) 13 13-40 U/L Alanine Aminotransferase (ALT) 11 7-40 U/L Alkaline Phosphatase 60 46-116 U/L Total Protein 7.0 5.7-8.2 g/dL Albumin 4.5 3.2-4.8 g/dL Triglycerides Level 183 H < 150 mg/dL Cholesterol Level 139 < 200 mg/dL LDL Cholesterol 64 < 100 mg/dL HDL Cholesterol 47 40-59 mg/dL Thyroid Stimulating Hormone (TSH) 1.55 0.55-4.78 uIU/mL Examination: GENERAL:Normal (AAO x3), LUNGS:Normal (Nonlabored breathing with symmetric expansion), ABDOMEN:Normal (Nondistended, soft, depressible), Any Other System: (Rectal exam, area of scarring noted at the 12 o'clock position (previous fissure site). No active fissures noted, no fistulas, no pus, no drainage, no external hemorrhoids. Digital rectal exam deferred due to pain.) Problem List/Assessment/Plan Problems: (1) Anal or rectal pain Assessment and Plan is a 70-year-old male who presents with significant rectal/anal pain with defecation. He underwent hemorrhoidectomy 6 months ago and the pain continues to get worse. Patient suffers from severe constipation although he has made some changes, drinking more water, daily Colace, and adding fiber supplement. I discussed with the patient on augmentin his p.o. water/fluid intake, increasing Colace 2 t.i.d., adding MiraLax p.r.n. for constipation, continuing Sitz baths with Epsom salt and continuing fiber supplementation. We will make these changes for a 1 month period, I will follow up in clinic and if he is still does not show any improvement we will then discuss performing a rectal exam under anesthesia with possible lateral sphincterotomy. Plan discussed with Plan discussed with: Patient Visit Coding Surgery Date of Service if different f: Sep 18, 2025 Billing Provider: NIKKI CAPELLAN MD Surgery Visit Codes: 44121 - INP CONSULT <110 MIN NIKKI CAPELLAN MD Sep 18, 2025 18:17
[2025-09-18] MEDS ORDERED: INSU1INJ19 SC (18:47)
[2025-09-18] MEDS ORDERED: METF-371 PO (18:48)
[2025-09-18] MEDS: DOCUSATE SOD 100 MG CAP PO SCH (21:59)
[2025-09-18] MEDS: ATORVASTATIN 20 MG TAB PO SCH (21:59)
[2025-09-18] MEDS ORDERED: LIDOCAINE 2% JELLY 11ml (GLYDO) ONE (22:25)
[2025-09-18] MEDS: LIDOCAINE 2% TOPICAL JELLY 5 ML URJT TOP SCH (22:31)
[2025-09-18] MEDS: ZOLPIDEM TARTRATE 5 MG TAB PO PRN (22:31)
--- NOTE | 2025-09-18 23:55 | DVHSR ---
APPROVED REPORT EXAM: Two-dimensional and M-mode echocardiogram with Doppler and color Doppler. Blood Pressure: 137/63 mmHg INDICATION Pre-syncope RISK FACTORS Height: 5'5, Weight: 155 DIMENSIONS LVDd 4.3 (3.8-5.7cm) LA (2D) 3.3 (1.9-4.0cm) Aortic Root 2.5 (2.0-3.7cm) LVDs 3.2 (2.5-4.0cm) LA (MM) (1.9-4.0cm) Aortic Cusp Exc 1.6 (1.5-2.0cm) EF (%) 53.0 (55-70%) Rt. Atrium 3.9 (1.9-4.0cm) Asc. Aorta 3.2 cm IVSd 1.3 (0.7-1.1cm) RV (D) (1.8-2.4cm) PWd 1.0 (0.7-1.1cm) Mitral Valve Mitral Mitral Stenosis E wave 1.20m/s MV Mean GR. mmHg A wave 1.29m/s MV Peak GR. 101mmHg E/A ratio 0.9 2D MVA cm2 DECEL Time 263ms PRESS 1/2 Time ms Aortic Valve Aortic Valve Aortic Stenosis V1 1.13m/s AO Mean GR. 5mmHg V2 1.57m/s AO Peak GR. 10mmHg LVOT Diameter 1.9 (1.8-2.4cm) Doppler [place] 2.04cm2 Pulmonic Valve V2 1.06m/s Tricuspid Valve TR Velocity 2.47m/s RVSP 25mmHg Other Information Technically limited study due to body habitus. Conclusion MILD LVH AND MILD LV DIASTOLIC DYSFUNCTION LV EF IS 65% HEAVILY CALCIFIED AORTIC VALVE SEVERE MITRAL ANNULAR CALCIFICATION NORMAL RV FUNCTION NORMAL RVSP IS 25 MM OF HG NO EFFUSION
[2025-09-19 05:17] LABS: Hematocrit 35.4 % (41.0-53.0); Hemoglobin 12.1 g/dL (13.5-17.5); Mean Corpuscular Hemoglobin 29.4 pg (28.0-32.0); Mean Corpuscular Volume 86.1 fL (80.0-100.0); Nucleated Red Blood Cells % 0.1 %
[2025-09-19 05:34] LABS: Alanine Aminotransferase < 9 U/L (7-40); Albumin 3.7 g/dL (3.2-4.8); Alkaline Phosphatase 52 U/L (46-116); Anion Gap 10 (5-15); BUN/Creatinine Ratio 19.1 (10.0-20.0); Bilirubin, Total 0.4 mg/dL (0.2-1.0); Blood Urea Nitrogen 17 mg/dL (9-23); Calcium 9.0 mg/dL (8.7-10.4); Carbon Dioxide 30 mmol/L (20-31); Chloride 103 mmol/L (98-107); Glucose 97 mg/dL (74-106); Potassium 4.0 mmol/L (3.5-5.1); Sodium 143 mmol/L (136-145); Total Protein 5.9 g/dL (5.7-8.2)
[2025-09-19 05:35] LABS: INR 1.03 (0.9-1.15); Prothrombin Time 10.9 sec (9.3-11.8)
[2025-09-19] MEDS ORDERED: MECLIZINE HCL 25 MG TAB PO PRN (06:00)
[2025-09-19 07:07] LABS: Prostate Specific Antigen 0.6 ng/mL (0.0-4.0)
[2025-09-19 08:00] VITALS: RESP 18
[2025-09-19 09:00] VITALS: BP 118/67; PULSE 60; RESP 18; TEMP 98.9; O2SAT 97
[2025-09-19] MEDS: ENOXAPARIN SOD 40 MG/0.4 ML SYRINGE SC SCH (09:50)
[2025-09-19] MEDS: LISINOPRIL 20 MG TAB PO SCH (10:06)
[2025-09-19] MEDS: FINASTERIDE 5 MG TAB PO SCH (10:07)
[2025-09-19] MEDS: FAMOTIDINE 20 MG TAB PO SCH (10:07)
--- NOTE | 2025-09-19 10:50 | DVH ---
Left HIP RADIOGRAPH. CLINICAL INDICATION: Traumatic injury TECHNIQUE: 3 views of the left hip were obtained. FINDINGS: There is no evidence of fracture, subluxation or dislocation.Moderate left hip osteoarthritis. Moderate right hip osteoarthritis. The bony mineralization is normal.No radiopaque foreign body is identified. IMPRESSION: 1. No evidence of acute bony injury.
[2025-09-19 12:36] VITALS: BP 135/73; PULSE 69; RESP 18; TEMP 99.2; O2SAT 97
--- NOTE | 2025-09-19 14:46 | DVHPNRES ---
Progress Note Date Seen: Sep 19, 2025 Resident Creating Document: KENYA ELIZONDO RESDIENT Medical Necessity Reason Pt with a Central, PICC or Fol: No Subjective Review of Systems This is a 70-year-old gentleman with past medical history of diabetes, hypertension, dyslipidemia, spinal herniated disc and hemorrhoids came to the hospital due to dizziness and syncope like episodes. Per patient, he had a mechanical fall 2 years back, and since that time he has neck and lower back pain which has progressively worsened. He also reports of dizziness, which gets worsened with changing position. He also reports of blurry vision, ringing ears, decreased hearing, constipation, severe rectal pain during passing stool, PMHx: diabetes, hypertension, dyslipidemia, spinal herniated disc and hemorrhoids PSHx: Underwent hemorrhoid surgery six-month marianela Family history: Father had heart attack Social history: Denies smoking, alcohol or any other drug use. Lives with the family at home Home medication: Lisinopril 20 mg daily, famotidine 40 mg daily, docusate, rosuvastatin 20 mg daily, glipizide 10 mg daily, metformin 1 g b.i.d., meloxicam, Allergic history: No known allergy Patient seen and examined at the bedside. Patient is still complaining of dizziness and severe lower back and neck pain. 09/19, patient seen and examined at the bedside. Patient is feeling better since admission but still complaining of neck pain, lower back pain and perianal area pain. Patient reports: No new complaints, Feels better Objective vital signs Vital Sign Date Time Temp Pulse Resp B/P (MAP) Pulse Ox O2 Delivery O2 Flow Rate FiO2 09/19/25 12:36 99.2 69 18 135/73 (93) 97 99.2 09/19/25 08:00 Room Air* 0 21 Total Intake and Output 09/18/25 09/18/25 09/19/25 15:00 23:00 07:00 Intake Total 200 ml Balance 200 ml medications Current Medications Medications Dose Ordered Sig/Binta Route Start Time Stop Time Status Last Admin Dose Admin Acetaminophen 650 mg Q6HP PRN PO 09/18/25 10:45 Enoxaparin Sodium 40 mg DAILY SC 09/19/25 10:00 Acetaminophen/ Hydrocodone Bitart 1 tab Q6HP PRN PO 09/18/25 10:45 Diagnostic Test (Pha) 1 strip ACHS 09/18/25 11:30 09/19/25 11:11 1 STRIP Insulin Human Regular ACHS SC 09/18/25 11:30 09/19/25 11:19 4 UNITS Dextrose 50 ml UD PRN IV 09/18/25 10:45 Lisinopril 20 mg DAILY PO 09/19/25 10:00 09/19/25 10:06 20 MG Atorvastatin Calcium 40 mg HS PO 09/18/25 22:00 09/18/25 21:59 40 MG Famotidine 40 mg DAILY PO 09/19/25 10:00 09/19/25 10:07 40 MG Morphine Sulfate 2 mg Q4HPRN PRN IV 09/18/25 13:30 09/18/25 14:02 2 MG Finasteride 5 mg DAILY PO 09/19/25 10:00 09/19/25 10:07 5 MG Meclizine HCl 25 mg [id number] PRN PO 09/19/25 06:00 Polyethylene Glycol 17 gm DAILYPRN PRN PO 09/18/25 17:15 Docusate Sodium 100 mg TID PO 09/18/25 22:00 09/19/25 13:47 100 MG Lidocaine HCl 5 ml Q8HR TOP 09/18/25 22:00 09/19/25 13:48 5 ML Zolpidem Tartrate 5 mg HSPRN PRN PO 09/18/25 22:00 09/18/25 22:31 5 MG Tamsulosin HCl 0.4 mg QPM PO 09/19/25 18:00 Examination General Appearance: Alert, Oriented X3, Cooperative, No acute distress HEENT: Atraumatic, PERRLA, EOMI, Mucous membrane moist/pink Respiratory: Clear to auscultation, Normal air movement Cardiovascular: Regular rate, Normal S1, Normal S2, No murmurs, no chest wall tenderness Abdominal: Normal bowel sounds, Soft, No tenderness, No hepatospenomegaly, No masses Extremities: No clubbing, No cyanosis, No edema, Normal pulses, No tenderness/swelling Skin: No rashes, No breakdown, No significant lesion Neuro: Neck and lower back tenderness, on midline Psych/Mental Status: Mental status NL, Mood NL Digital rectal exam performed, found to skin tags, but due to high sphincters from, could not advance the finger laboratory and microbiology Laboratory Tests 09/19/25 04:30 Test 09/19/25 04:30 Range/Units Serum Glucose 97 74-106 mg/dL Labs and/or images reviewed: Labs reviewed by me, Image(s) reviewed by me Problem List/Assessment/Plan Problem List/Assessment/Plan Vertigo, likely due to severe cervical spine stenosis/BPPV Presyncope, due to above Severe cervical spine stenosis BPPV Painful defecation, likely due to anal fissure Annual fissure History of hemorrhoids Severe constipation, due to above BPH Diabetes Hypertension Dyslipidemia * Orthostatic hypotension check, no significant changes * Consult Doppler, and Head CT scan shows no significant intracranial abnormalities * Cervical spine MRI shows, multilevel degenerative changes most pronounced at C5-6 where there is severe spinal canal narrowing with cord indentation and moderate to severe bilateral foraminal stenosis * Lumbar spine MRI shows, multilevel degenerative changes of the lumbar spine as described above with [id number] foraminal stenosis at multiple levels. No significant spinal canal stenosis * Pelvic ultrasound shows, moderate large prostate Plan/recommendation: * Consider surgery for severe constipation and anal fissure, recommended medical management * Consulted spine surgery for severe cervical spine stenosis, recommended surgery * Continue Flomax and finasteride * MiraLax and Colace for constipation and local lidocaine * Continue home meds, lisinopril and atorvastatin * Pain management DIET: Diabetic diet DVT PROPHYLAXIS: Lovenox GI PROPHYLAXIS:: Protonix BOWEL REGIMEN: Colace and MiraLax CODE STATUS: Goal of care discussed for more than 18 minutes, full code DISPOSITION: Telemetry Patient's status and plan discussed with the patient. Case discussed with Dr. Lamb. Plan discussed with: Patient, Son, Other (RN) My Orders My Orders Orders - KENYA ELIZONDO RESDIJHONATHAN Procedure Category Date Status Time * Surgical Consult CONS 09/18/25 Transmitted Finasteride Tablet PHA 09/19/25 In Process (Proscar Tablet) 10:00 Polyethylene Glycol PHA 09/18/25 In Process 17g Powder (Miralax 17:15 ConsultdrKendra Goodricham CONS 09/18/25 Transmitted [place](Spine) 17:29 Meclizine Tablet PHA 09/19/25 In Process (Antivert Tablet) 06:00 L Hip Complete Xray XY 09/19/25 Resulted 08:08 Tamsulosin PHA 09/19/25 In Process Hydrochloride (Flomax) 18:00 Pt Request For Service PT 09/19/25 Logged 13:31 Date of Service: Sep 19, 2025 Billing Provider: MICHELLE LAMB MD Common Visit Codes: [id number] INP/OBS CARE(HIGH) KENYA ELIZONDO RESDIGOOD [facility] Sep 19, 2025 14:46 MICHELLE LAMB MD Sep 19, 2025 17:16
--- NOTE | 2025-09-19 17:14 | DVHPN2 ---
Progress Note - Surgical Date Seen: Sep 19, 2025 Post op day Post op day: 0 Subjective Patient reports: No new complaints (Afebrile vital stable) Review of Systems: Deferred Objective Vital signs Vital Sign Date Time Temp Pulse Resp B/P (MAP) Pulse Ox O2 Delivery O2 Flow Rate FiO2 09/19/25 12:36 99.2 69 18 135/73 (93) 97 99.2 09/19/25 08:00 Room Air* 0 21 Total Intake and Output 09/18/25 09/18/25 09/19/25 15:00 23:00 07:00 Intake Total 200 ml Balance 200 ml Medications Current Medications Medications Dose Ordered Sig/Binta Route Start Time Stop Time Status Last Admin Dose Admin Acetaminophen 650 mg Q6HP PRN PO 09/18/25 10:45 Enoxaparin Sodium 40 mg DAILY SC 09/19/25 10:00 Acetaminophen/ Hydrocodone Bitart 1 tab Q6HP PRN PO 09/18/25 10:45 Diagnostic Test (Pha) 1 strip ACHS 09/18/25 11:30 09/19/25 11:11 1 STRIP Insulin Human Regular ACHS SC 09/18/25 11:30 09/19/25 11:19 4 UNITS Dextrose 50 ml UD PRN IV 09/18/25 10:45 Lisinopril 20 mg DAILY PO 09/19/25 10:00 09/19/25 10:06 20 MG Atorvastatin Calcium 40 mg HS PO 09/18/25 22:00 09/18/25 21:59 40 MG Famotidine 40 mg DAILY PO 09/19/25 10:00 09/19/25 10:07 40 MG Morphine Sulfate 2 mg Q4HPRN PRN IV 09/18/25 13:30 09/18/25 14:02 2 MG Finasteride 5 mg DAILY PO 09/19/25 10:00 09/19/25 10:07 5 MG Meclizine HCl 25 mg [id number] PRN PO 09/19/25 06:00 Polyethylene Glycol 17 gm DAILYPRN PRN PO 09/18/25 17:15 Docusate Sodium 100 mg TID PO 09/18/25 22:00 09/19/25 13:47 100 MG Lidocaine HCl 5 ml Q8HR TOP 09/18/25 22:00 09/19/25 13:48 5 ML Zolpidem Tartrate 5 mg HSPRN PRN PO 09/18/25 22:00 09/18/25 22:31 5 MG Tamsulosin HCl 0.4 mg QPM PO 09/19/25 18:00 Laboratory Laboratory Tests 09/19/25 04:30 Test 09/19/25 04:30 Range/Units Serum Glucose 97 74-106 mg/dL Examination: GENERAL:Normal (AAO x3), LUNGS:Normal (Labored breathing with symmetric expansion) Labs and/or images reviewed: Labs reviewed by me (No abnormalities) Problem List/Assessment/Plan Problems: (1) Anal or rectal pain Assessment and Plan is a 70-year-old male who presents with significant rectal/anal pain with defecation. He underwent hemorrhoidectomy 6 months ago and the pain continues to get worse. Patient suffers from severe constipation although he has made some changes, drinking more water, daily Colace, and adding fiber supplement. Discussed trial of medical management with the patient, and I will follow up with him in 1 month at clinic. 1. Needs to drink plenty of water daily 2. Fiber supplementation with diet changes or fiber gummies or Metamucil. Needs to drink lots of water daily with fiber supplementation 3. Colace 100 mg t.i.d. 4. MiraLax 1 packet p.o. daily PRN constipation 5. Diltiazem cream, apply to anal area twice daily 6. Lidocaine jelly 2-5%, apply to anal area as needed for pain 7. Sitz bath with Epsom salt after each bowel movement 8. Follow up with Dr. Mora at surgery Clinic in 1 month, please call for appointment. 9. I will sign off please call with any questions or concerns. My Orders My Orders Orders - NIKKI CAPELLAN MD Procedure Category Date Status Time Docusate Sodium PHA 09/18/25 In Process Capsule (Colace 22:00 Sitz Bath GHADA 09/18/25 In Process 18:17 Lidocaine 2% Topical PHA 09/18/25 In Process Jelly (Lidocaine Hc 22:00 Plan discussed with Plan discussed with: Patient Visit Coding Surgery Date of Service if different f: Sep 19, 2025 Billing Provider: NIKKI CAPELLAN MD Surgery Visit Codes: [id number] INP/OBS CARE(HIGH) NIKKI CAPELLAN MD Sep 19, 2025 17:14
[2025-09-19 17:52] VITALS: BP 126/64; PULSE 70; RESP 18; TEMP 98.2; O2SAT 98
[2025-09-19 18:18] LABS: Hematocrit 38.1 % (41.0-53.0); Hemoglobin 13.0 g/dL (13.5-17.5); Mean Corpuscular Hemoglobin 29.5 pg (28.0-32.0); Mean Corpuscular Volume 86.6 fL (80.0-100.0); Nucleated Red Blood Cells % 0.1 %
[2025-09-19] MEDS: TAMSULOSIN HYDROCHLORIDE 0.4 MG CAP PO SCH (18:22)
[2025-09-19 20:00] VITALS: PULSE 90; RESP 18; O2SAT 98
[2025-09-19 21:00] VITALS: BP 149/72; PULSE 90; RESP 18; TEMP 98.9; O2SAT 98
[2025-09-19] MEDS: ACETAMINOPHEN 325 MG TAB PO PRN (21:12)
[2025-09-20] MEDS: POLYETHYLENE GLYCOL 17 GM PWDR PO PRN (06:44)
[2025-09-20 08:00] VITALS: RESP 17
[2025-09-20 08:39] VITALS: BP 131/73; PULSE 66; RESP 16; TEMP 98.1; O2SAT 97
[2025-09-20] MEDS ORDERED: FINA5TAB4 PO (10:30)
[2025-09-20] MEDS ORDERED: TAMS-35 PO (10:30)
[2025-09-20] MEDS ORDERED: POLY335015 PO (10:30)
[2025-09-20] MEDS ORDERED: DOCU-94 PO (10:30)
[2025-09-20] MEDS ORDERED: EMPA1TAB PO (10:30)
[2025-09-20] MEDS ORDERED: LIDO5DIS21 TOP (10:30)
[2025-09-20] MEDS ORDERED: BACL20TA PO (10:31)
[2025-09-20 12:38] VITALS: BP 137/73; PULSE 66; RESP 14; TEMP 36.7; O2SAT 97
--- NOTE | 2025-09-20 14:50 | DVHDSRES ---
Discharge Summary Date of Admission Resident Creating Document: KENYA ELIZONDO RESDIENT Sep 18, 2025 at 10:30 Date of Discharge: Sep 20, 2025 Labs/Diagnostic Data: Laboratory Results Test 09/20/25 11:55 09/19/25 17:49 09/19/25 04:30 09/18/25 13:11 POC Glucose 176 mg/dl (70-106) White Blood Count 6.7 10^3/uL (4.4-10.8) Red Blood Count 4.40 10^6/uL (4.5-5.90) Hemoglobin 13.0 g/dL (13.5-17.5) Hematocrit 38.1 % (41.0-53.0) Mean Corpuscular Volume 86.6 fL (80.0-100.0) Mean Corpuscular Hemoglobin 29.5 pg (28.0-32.0) Mean Corpuscular Hemoglobin Concent 34.0 g/dL (32.0-36.0) Red Cell Distribution Width 12.9 % (11.8-14.3) Platelet Count 141 10^3/uL (140-450) Mean Platelet Volume 10.9 fL (6.9-10.8) Neutrophils (%) (Auto) 43.7 % (37.0-80.0) Lymphocytes (%) (Auto) 46.1 % (10.0-50.0) Monocytes (%) (Auto) 7.7 % (0.0-12.0) Eosinophils (%) (Auto) 1.8 % (0.0-7.0) Basophils (%) (Auto) 0.7 % (0.0-2.0) Neutrophils # (Auto) 2.9 10 ^3/uL (1.6-8.6) Lymphocytes # (Auto) 3.1 10 ^3/uL (0.4-5.4) Monocytes # (Auto) 0.5 10 ^3/uL (0-1.3) Eosinophils # (Auto) 0.1 10 ^3/uL (0-0.8) Basophils # (Auto) 0 10 ^3/uL (0-0.2) Nucleated Red Blood Cells 0.1 % Prothrombin Time 10.9 sec (9.3-11.8) Prothrombin Time INR 1.03 (0.9-1.15) Sodium Level 143 mmol/L (136-145) Potassium Level 4.0 mmol/L (3.5-5.1) Chloride Level 103 mmol/L (98-107) Carbon Dioxide Level 30 mmol/L (20-31) Anion Gap 10 (5-15) Blood Urea Nitrogen 17 mg/dL (9-23) Creatinine 0.89 mg/dL (0.700-1.30) Glomerular Filtration Rate Calc 93 mL/min (>90) BUN/Creatinine Ratio 19.1 (10.0-20.0) Serum Glucose 97 mg/dL (74-106) Calcium Level 9.0 mg/dL (8.7-10.4) Total Bilirubin 0.4 mg/dL (0.2-1.0) Aspartate Amino Transferase (AST) 11 U/L (13-40) Alanine Aminotransferase (ALT) < 9 U/L (7-40) Alkaline Phosphatase 52 U/L (46-116) Total Protein 5.9 g/dL (5.7-8.2) Albumin 3.7 g/dL (3.2-4.8) Stool Occult Blood Negative (Negative) Stool Occult Blood Sample #3 (Negative) Test 09/18/25 12:04 09/18/25 11:31 09/18/25 09:02 Free Prostate Specific Antigen 0.26 ng/mL (N/A) Percent Free Prostate Specific Ag 43.3 % (.) Prostate Specific Antigen Total 0.6 ng/mL (0.0-4.0) Vitamin B12 Level 1643 pg/mL (211-911) Vitamin D 25-Hydroxy 86.9 ng/mL (30.0-100) Urine Color Light-yellow (Yellow) Urine Clarity Clear (Clear) Urine pH 7.0 (5.0-9.0) Urine Specific [place] 1.013 (1.001-1.035) Urine Protein Negative (Negative) Urine Ketones Negative (Negative) Urine Blood Negative /uL (Negative) Urine Nitrite Negative (Negative) Urine Bilirubin Negative (Negative) Urine Urobilinogen Normal mg/dL (Negative) Urine Leukocyte Esterase Negative /uL (Negative) Urine RBC <1 /hpf (0 - 3) Urine Microscopic WBC < 1 /HPF (0-3) Urine Squamous Epithelial Cells None seen /hpf (<5) Urine Bacteria None seen /hpf (None Seen) Urine Glucose Normal mg/dL (Normal) Hemoglobin A1c 7.0 % A1C (<5.7) Magnesium Level 1.9 mg/dL (1.6-2.6) Direct Bilirubin 0.1 mg/dL (<0.3) Triglycerides Level 183 mg/dL (< 150) Cholesterol Level 139 mg/dL (< 200) LDL Cholesterol 64 mg/dL (< 100) HDL Cholesterol 47 mg/dL (40-59) Thyroid Stimulating Hormone (TSH) 1.55 uIU/mL (0.55-4.78) Other Laboratory Tests 09/19/25 17:49 09/19/25 04:30 Brief Hx & Hospital Course: HISTORY OF PRESENT ILLNESS: This is a 70-year-old gentleman with past medical history of diabetes, hypertension, dyslipidemia, spinal herniated disc and hemorrhoids came to the hospital due to dizziness and syncope like episodes. Per patient, he had a mechanical fall 2 years back, and since that time he has neck and lower back pain which has progressively worsened. He also reports of dizziness, which gets worsened with changing position. He also reports of blurry vision, ringing ears, decreased hearing, constipation, severe rectal pain during passing stool, PMHx: diabetes, hypertension, dyslipidemia, spinal herniated disc and hemorrhoids PSHx: Underwent hemorrhoid surgery six-month marianela Family history: Father had heart attack Social history: Denies smoking, alcohol or any other drug use. Lives with the family at home Home medication: Lisinopril 20 mg daily, famotidine 40 mg daily, docusate, rosuvastatin 20 mg daily, glipizide 10 mg daily, metformin 1 g b.i.d., meloxicam, Allergic history: No known allergy HOSPITAL COURSE: Patient was admitted due to presyncope. Head CT scan performed, showed no significant intracranial abnormalities. Patient was also reporting intractable neck and lower back pain, MRI performed, showed Cervical spine MRI shows, multilevel degenerative changes most pronounced at C5-6 where there is severe spinal canal narrowing with cord indentation and moderate to severe bilateral foraminal stenosis, spine surgery consulted, recommended surgery, but patient's/patient's family preferred conservative management/physiotherapy before surgery. Due to severe perianal pain, and constipation, rectal exam performed, due to high tone of sphincter, could not complete take some. Surgery consulted, recommended medical management for the constipation and pain, and outpatient follow up for possible surgery. During hospital admission, the patient was given morphine, Pandora, Tylenol for pain. Ultrasound of pelvic showed BPH, the patient was started on finasteride and Flomax. During hospital admission, the patient was given insulin according to sliding scale for diabetes. DISCHARGE PLAN: Follow up with the PCP within 1 week of the discharge. Follow up with the surgery on outpatient basis. Follow up with the spine surgery on outpatient basis. Discontinue glipizide and meloxicam Started on Jardiance, Flomax, and finasteride Lidocaine local gel for perianal pain Continue rest of home meds FINAL DIAGNOSIS: Vertigo, likely due to severe cervical spine stenosis/BPPV Presyncope, due to above Severe cervical spine stenosis BPPV Painful defecation, likely due to anal fissure Anesthesia Severe constipation Constipation, due to above BPH Diabetes Hypertension Dyslipidemia Ruled out autonomic dysfunction Condition at Discharge: Stable Final Diagnosis/Problems List Vertigo, likely due to severe cervical spine stenosis/BPPV Presyncope, due to above Severe cervical spine stenosis BPPV Painful defecation, likely due to anal fissure Anesthesia Severe constipation Constipation, due to above BPH Diabetes Hypertension Dyslipidemia Ruled out autonomic dysfunction Discharge Disposition: Home Discharge Instruct/Medications Diet: Consistent carbohydrate, Cardiac 2g Na,low cholest Activity: No Restrictions, As Tolerated Follow Up/Referral: Follow up with the PCP within 1 week of the discharge. Follow up with the neurosurgeon on outpatient basis. Follow up with General surgery on outpatient basis. Follow up with physical therapy Medications: Jardiance 10 mg daily Flomax 0.4 mg during the night Finasteride 5 mg daily Colace 3 times a day MiraLax once a day as needed Nifedipine local Lidocaine local Discontinue glipizide Discontinue meloxicam Continue rest of home meds Scheduled Baclofen (Baclofen), 10 TAB PO TID Docusate Sodium (Colace), 100 MG PO TID Empagliflozin (Jardiance), 10 MG PO BID Famotidine (Famotidine), 1 TAB PO DAILY, (Reported) Finasteride (Finasteride), 5 MG PO DAILY Insulin Glargine (Basaglar Kwikpen), 20 UNIT SC Bedtime , (Reported) Lidocaine (Lidoderm 5% Topical Patch), 1 PATCH TOP PRN Lisinopril (Lisinopril), 1 TAB PO BID, (Reported) Metformin Hydrochloride (Metformin Hcl), 1,000 MG PO BID, (Reported) Rosuvastatin Calcium (Rosuvastatin Calcium), 1 TAB PO DAILY, (Reported) Tamsulosin Hcl (Flomax), 0.4 MG PO DAILY Scheduled PRN Polyethylene Glycol 3350 (Miralax), 17 GM PO DAILY PRN Discharge Statement: "Patient was advised to return to the ER or call 911 if any headaches, dizziness, shortness of breath, chest pain, abdominal pain, bleeding, fevers, or worsening of medical condition. Patient was counseled about treatment plan, medications, possible side effects, patientverbalized understanding. All questions were answered to the best of my ability. This discharge took greater then 30 minutes in planning, reviewing documentation, counseling the patient, and discussing with other team members." ASSESSMENT ASSESSMENT Assessment Severe spinal canal stenosis Date of Service: Sep 20, 2025 Billing Provider: CHUYITA GILBERT MD Common Visit Codes: [id number] DISCH DAY >30min KENYA ELIZONDO RESDIENT Sep 20, 2025 14:50 CHUYITA GILBERT MD Sep 25, 2025 09:54
== END 2025-09-20 13:30 | disposition home or self-care (01) | DRG 552 ==
LOC: ER 08:41 → OVERFLOW 10:30 → TELE-EAST 16:20 → EAST 20:59
PROVIDERS: ADMIT Family Medicine; ATTEND Family Medicine
DX: M48.02 Spinal stenosis, cervical region (principal); E78.5 Hyperlipidemia, unspecified; I10 Essential (primary) hypertension; M47.816 Spondylosis without myelopathy or radiculopathy, lumbar region; N40.0 Benign prostatic hyperplasia without lower urinary tract symptoms; K59.00 Constipation, unspecified; K60.2 Anal fissure, unspecified; I95.1 Orthostatic hypotension; H81.13 Benign paroxysmal vertigo, bilateral; K62.89 Other specified diseases of anus and rectum; M62.830 Muscle spasm of back; M62.838 Other muscle spasm; M48.061 Spinal stenosis, lumbar region without neurogenic claudication; Z79.899 Other long term (current) drug therapy; Z82.49 Family history of ischemic heart disease and other diseases of the circulatory system; Z79.84 Long term (current) use of oral hypoglycemic drugs
CPT/HCPCS: 36415; 70450; 72141; 72148; 73502; 76856; 80048; 80053; 80061; 80076; 81001; 82270; 82306; 82607; 82962; 83036; 83735; 84154; 84443; 85025; 85610; 93005; 93306; 93886; 96372; 97163; G0378; J1815